=== PATIENT | female | born 1995 | race Caucasian/White ===

== ENCOUNTER 2022-05-13 10:33 | Inpatient (IN) | payer OTHER ==
[2022-05-13 11:21] VITALS: BMI 24.3
[2022-05-13 11:23] LABS: Fetal Membranes Rupture RUPTURE DETECTED (No Rupture)
[2022-05-13] MEDS ORDERED: Lidocaine 1% (PF) 30 ML VIAL SC PRN (12:54)
[2022-05-13] MEDS ORDERED: Acetaminophen 500 MG TAB PO PRN (12:54)
[2022-05-13] MEDS ORDERED: hydrALAZINE 20 MG/ML VIAL SLOW IVP PRN ×2 (12:54→21:41)
[2022-05-13] MEDS ORDERED: Diphenoxylate HCl/Atropine Tablet PO PRN ×2 (12:54)
[2022-05-13] MEDS ORDERED: Misoprostol 200 MCG TAB PR PRN (12:54)
[2022-05-13] MEDS ORDERED: Promethazine HCl 25 MG/ML VIAL IM PRN ×3 (12:54→21:41)
[2022-05-13] MEDS ORDERED: Ibuprofen 800 MG TAB PO PRN (12:54)
[2022-05-13] MEDS ORDERED: Methylergonovine 0.2 MG/ML VIAL IM PRN ×2 (12:54→21:41)
[2022-05-13] MEDS ORDERED: Docusate 100 MG CAP PO PRN (12:54)
[2022-05-13] MEDS ORDERED: HYDROcodone/Acetaminophen 5/325 mg Tablet PO PRN ×2 (12:54→21:41)
[2022-05-13] MEDS ORDERED: Butorphanol Tartrate 1 MG/ML VIAL SLOW IVP PRN (12:54)
[2022-05-13] MEDS ORDERED: Ondansetron PF 4 MG/2 ML Vial IVP PRN ×3 (12:54→21:41)
[2022-05-13] MEDS ORDERED: Carboprost 250 MCG/ML AMP IM PRN (12:54)
[2022-05-13] MEDS ORDERED: Lactated Ringer's 1,000 ML IV SCH (13:00)
[2022-05-13] MEDS ORDERED: NS w/ Oxytocin 30 units 500 ML IV SCH ×3 (13:00→22:00)
[2022-05-13] MEDS ORDERED: CEFAZOLIN 1 GM in Sodium Chloride 0.9% 100 ML IVPB SCH ×2 (13:15→21:00)
[2022-05-13 13:55] LABS: Mean Corpuscular HGB CONC 34.2 g/dL (32.0-36.0); Mean Corpuscular Hemoglobin 32.3 pg (27.0-33.0); Mean Corpuscular Volume 94.4 fl (81.6-98.3); Platelet Count 263 10x3/uL (150-450); RBC Distribution Width 13.2 % (11.5-14.5); Red Blood Cell (RBC) Count 3.72 10x6/uL (3.90-5.03); White Blood Cell (WBC) Count 18.2 10x3/uL (3.5-10.5)
[2022-05-13] MEDS ORDERED: Fentanyl 2 mcg/Bup 0.1% Cadd 100 ML ONE (14:37)
[2022-05-13] MEDS ORDERED: diphenhydrAMINE 50 MG/ML VIAL ONE (14:38)
[2022-05-13] MEDS ORDERED: ePHEDrine Sulfate 50 MG/10 ML VIAL SLOW IVP PRN (14:44)
[2022-05-13] MEDS ORDERED: Acetaminophen 325 MG TAB PO PRN (14:44)
[2022-05-13] MEDS ORDERED: diphenhydrAMINE 50 MG/ML VIAL IVP PRN (14:44)
[2022-05-13] MEDS ORDERED: Moisturizing Cream (Eucerin) 113 GM JAR TOP PRN (14:44)
[2022-05-13] MEDS ORDERED: Naloxone HCl 0.4 mg/ml Vial IVP PRN ×2 (14:44)
[2022-05-13] MEDS ORDERED: Fentanyl 2 mcg/Bupivacaine 0.1% Cassette 100 ML EPIDURAL SCH (14:45)
[2022-05-13] MEDS ORDERED: Communication Order-Pharmacy FS SCH (14:45)
[2022-05-13] MEDS ORDERED: Lactated Ringer's 500 ML IV PRN (14:50)
[2022-05-13 14:52] LABS: HBSAg Index 0.26 S/CO (0-0.99); Hep B Surf Ag Non-Reactive S/CO (NonReactive); Syphilis Antibody Nonreactive (Nonreactive); Syphilis Antibody Index 0.02 S/CO (<1.00 Non-Reactive)
[2022-05-13 16:05] LABS: Amphetamine Not Detected (NotDetected); Barbiturates Screen Not Detected (NotDetected); Benzodiazepine Screen Not Detected (NotDetected); Cocaine Metabolite Screen Not Detected (NotDetected); Methadone Not Detected (NotDetected); Methamphetamine Not Detected (NotDetected); Opiate Screen Not Detected (NotDetected); Oxycodone Screen Not Detected (NotDetected); Phencyclidine (PCP) Not Detected (NotDetected); THC/Cannabinoid Screen Detected (NotDetected); Tricyclic Screen Not Detected (NotDetected)
[2022-05-13 16:44] LABS: SARS-CoV-2 NAA Rapid Test Not Detected (NotDetected)
[2022-05-13] MEDS ORDERED: Zolpidem Tartrate 5 MG TAB PO PRN (21:41)
[2022-05-13] MEDS ORDERED: Misoprostol 200 MCG TAB VAG PRN (21:41)
[2022-05-13] MEDS ORDERED: Milk Of Magnesia 30 ML UDCUP PO PRN (21:41)
[2022-05-13] MEDS ORDERED: Varicella virus, LIVE 0.5 ML VIAL SC ONE (21:41)
[2022-05-13] MEDS ORDERED: diphenhydrAMINE 25 MG CAP PO PRN (21:41)
[2022-05-13] MEDS ORDERED: Boostrix 0.5 ML (Tdap) VIAL (>/=7 yrs of age) IM ONE (21:41)
[2022-05-13] MEDS ORDERED: Measles/Mumps/Rubella 10 MCG/0.5 ML VIAL SC ONE (21:41)
[2022-05-13] MEDS ORDERED: Bisacodyl 10 MG SUPP PR PRN (21:41)
[2022-05-13] MEDS ORDERED: Benzocaine-Menthol 82.5 ML CAN TOP PRN (21:41)
[2022-05-13] MEDS ORDERED: Preparation H Ointment 28 GM TUBE PR PRN (21:41)
[2022-05-13] MEDS ORDERED: Lanolin Ointment 7 GM TUBE TOP PRN (21:41)
[2022-05-13] MEDS ORDERED: Docusate 100 MG CAP PO SCH (22:15)
[2022-05-13] MEDS: Ibuprofen 800 MG TAB PO SCH (22:27)
[2022-05-13 22:35] LABS: HIV (1/2) Antibody/Antigen Non-Reactive (NonReactive); HIV 1/2 INDEX 0.05 S/CO (<1.00)
[2022-05-14 05:11] LABS: Hemoglobin 10.7 g/dL (12.0-15.5); Mean Corpuscular HGB CONC 34.4 g/dL (32.0-36.0); Mean Corpuscular Hemoglobin 31.9 pg (27.0-33.0); Mean Corpuscular Volume 92.8 fl (81.6-98.3); Mean Platelet Volume 11.1 fl (7.4-10.4); Platelet Count 214 10x3/uL (150-450); RBC Distribution Width 13.2 % (11.5-14.5); Red Blood Cell (RBC) Count 3.35 10x6/uL (3.90-5.03); White Blood Cell (WBC) Count 16.4 10x3/uL (3.5-10.5)
[2022-05-14] MEDS: Ibuprofen 800 MG TAB PO SCH ×3 (05:41→22:35)
[2022-05-14] MEDS: Ferrous Sulfate 325 MG TAB PO SCH ×2 (07:31→15:34)
[2022-05-14] MEDS: Prenatal Vitamin 1 TAB PO SCH (08:54)
[2022-05-14] MEDS: Docusate 100 MG CAP PO SCH ×2 (08:55→22:00)
[2022-05-15] MEDS: Ibuprofen 800 MG TAB PO SCH (06:20)
[2022-05-15 08:14] VITALS: BP 127/66; TEMP 98.2
[2022-05-15] MEDS: Ferrous Sulfate 325 MG TAB PO SCH (08:54)
[2022-05-15] MEDS: Docusate 100 MG CAP PO SCH (08:55)
[2022-05-15] MEDS: Prenatal Vitamin 1 TAB PO SCH (08:55)
== END 2022-05-15 13:35 | disposition home or self-care (01) | DRG 807 ==
LOC: CSHLD/OP 10:33 → CSHLD 11:49 → CSHPP 21:25
PROVIDERS: ADMIT Obstetrics & Gynecology; ATTEND Obstetrics & Gynecology
PROC: 10E0XZZ Delivery of Products of Conception, External Approach (ICD-10-PCS; principal; 2022-05-13)
DX: O42.02 Full-term premature rupture of membranes, onset of labor within 24 hours of rupture (principal); Z37.0 Single live birth; Z3A.39 39 weeks gestation of pregnancy; Z20.822 Contact with and (suspected) exposure to COVID-19; F41.9 Anxiety disorder, unspecified; F32.A Depression, unspecified; F17.210 Nicotine dependence, cigarettes, uncomplicated; O99.334 Smoking (tobacco) complicating childbirth
CPT/HCPCS: 36415; 51702; 80306; 84112; 85027; 86780; 86850; 86900; 86901; 87340; 87389; 99285; J0690; J3490; U0002